=== PATIENT | male | born 1930 | race Caucasian/White ===

== ENCOUNTER 2019-12-16 12:02 | Emergency (ER) | payer OTHER ==
--- NOTE | 2019-12-16 12:15 | PDOC ---
History of Present Illness - General Chief Complaint: Injury Stated Complaint: FALL/LT ARM PAIN - History of Present Illness Initial Comments: 89 yo male with PMH of HTN, HLD, DM, CHF, BPH is [facility] due [facility] falls. Pt states that he fell and hit his head and left shoulder. He is unsure if he tripped or fainted. The falls were unwitnessed. Pt is poor historian but hx obtained by EMS, nursing, and nephew says that he was trying to get out of his wheel chair to curiel to the bathroom when he fell. Pt is on aspirin and is coming from [facility]. He is DNR/DNI and his healthcare proxy is his nephew, Robert Pascal, . Pt denies fevers, chills, cp, sob, nvd, dysuria, hematuria, bloody stool. 12/16/19 13:19 Past History - Medical History Allergies/Adverse Reactions: Allergies Allergy/AdvReac Type Severity Reaction Status Date / Time No Known Drug Allergies Allergy Verified 04/19/14 08:40 Home Medications: Ambulatory Orders Calcium 500 mg PO DAILY 05/21/13 Dutasteride [Avodart] 0.5 mg PO DAILY 05/21/13 Lisinopril/Hydrochlorothiazide [Lisinopril-Hctz 20-25 mg Tab] 1 each PO DAILY 05/21/13 Multivitamin [Multivitamins] 1 each PO DAILY 05/21/13 Nebivolol HCl [Bystolic] 10 mg PO DAILY 05/21/13 Ondansetron Oral Solution [Zofran Oral Solution 4 MG/5 ML -] 4 mg PO TID #10 mg 04/19/14 Saw [place] 80 mg PO DAILY 04/19/14 Valsartan/Hydrochlorothiazide [Diovan Hct 320-12.5 mg Tab] 1 combo PO DAILY 04/19/14 oxyCODONE HCL [Roxicodone -] 5 mg PO Q6H PRN 04/19/14 Unobtainable Home Med List 0 dose .ROUTE UTDICT 04/20/14 Disorders: Yes (PROSTATIC HYPERTROPHY) HTN: Yes Hypercholesterolemia: Yes - Psycho-Social/Smoking History Smoking History: Never smoked Review of Systems - Review of Systems Constitutional: No: Chills, Fever HEENTM: No: Recent change in vision, Nose Congestion Respiratory: No: Cough, Shortness of Breath Cardiac (ROS): Yes: Syncope. No: Chest Pain, Palpitations ABD/GI: No: Constipated, Diarrhea, Nausea, Vomiting : No: Burning, Dysuria, Discharge, Flank Pain Musculoskeletal: Yes: Other (left shoulder pain. unable to raise arm. ) Integumentary: No: Dryness, Flushing, Lesions Neurological: No: Headache, Ataxia, Dizziness Psychiatric: No: Anxiety, Depression, Mood Swings Endocrine: No: Intolerance to Cold, Intolerance to Heat *Physical Exam - Physical Exam General Appearance: Yes: Appropriately Dressed. No: Apparent Distress HEENT: positive: EOMI, LEE, Normal Voice, Other (5mm laceration on forehead above left eyebrow) Neck: negative: Tender, Rigidity Respiratory/Chest: positive: Lungs Clear, Normal Breath Sounds. negative: Respiratory Distress Cardiovascular: positive: Regular Rhythm, Regular Rate, S1, S2. negative: Edema, JVD Gastrointestinal/Abdominal: positive: Flat, Soft. negative: Tender Musculoskeletal: positive: Decreased Range of Motion (left arm). negative: CVA Tenderness Extremity: positive: Normal Capillary Refill, Normal Inspection, Tender (left arm). negative: Normal Range of Motion Integumentary: positive: Normal Color, Dry, Warm Neurologic: positive: cleat maker II-XII NML intact, Alert, Responsive, Finger to Nose, Confused, Disoriented, Other. negative: Fully Oriented (alert to self. ) ED Treatment Course - LABORATORY CBC & Chemistry Diagram: 12/16/19 13:13 12/16/19 13:13 Medical Decision Making - Medical Decision Making 89 yo male with PMH of HTN, HLD, DM, CHF, BPH is brought in by EMS [facility] due to multiple falls. CBC CMP UA UC Left shoulder x-ray shows communited CT head & cervical spine dont show any acute process Spoke with Dr. Tiffanie Coronel who takes care of Mr Grullon Spoke with Dr. Martinez who wanted a CT of the shoulder to rule out dislocations. Patient placed in sling and being sent back to nursing care to follow up outpatient with Dr. Martinez. Spoke with Robert Pascal (nephew, proxy), who agrees with the plan to discharge him since the patient is DNR/DNI/DNH. Discharge - Discharge Information Problems reviewed: Yes Clinical Impression/Diagnosis: Humerus fracture, Fall Condition: Stable Disposition: CUSTODIAL FACILITY - Admission No - Follow up/Referral Referrals: Guille Martinez DO [Staff Physician] - Tiffanie Coronel MD [Staff Physician] - Claribel St MD [Staff Physician] - - Patient Discharge Instructions Patient Printed Discharge Instructions: How to Use a Sling Additional Instructions: You were evaluated today for a left arm fracture. Take tylenol at home for your arm pain. Avoid activities that will stress your left arm and keep it in the sling provided. Follow up with Dr. Martinez within 5 days to evaluate you for the left arm fracture. Return to the ED if your condition worsens and/or you experience worsening pain, headaches, change in vision, fevers, chills, abdominal pain, back pain, pain during urination, numbness or tingling in the left arm/hand/fingers. - Post Discharge Activity
[2019-12-16 12:17] VITALS: TEMP 98.1; BMI 26.6
[2019-12-16] MEDS ORDERED: ACETAMINOPHEN 325 MG TABLET (FP) PO ONE (13:25)
[2019-12-16 13:26] LABS: HEMATOCRIT 36.6 % (35.4-49); HEMOGLOBIN 11.9 GM/dL (11.7-16.9); MCH 29.2 pg (25.7-33.7); MCHC 32.5 g/dl (32.0-35.9); MEAN CELL VOLUME 89.6 fl (80-96); MEAN PLT VOLUME 9.1 fl (7.5-11.1); PLATELET COUNT 216 K/MM3 (134-434); RBC 4.08 M/mm3 (4.00-5.60); RDW 15.8 % (11.9-15.9); WHITE BLOOD COUNT 11.1 K/mm3 (4.0-10.0)
[2019-12-16 14:04] LABS: ALBUMIN 3.6 g/dl (3.4-5.0); ALK PHOS 76 U/L (45-117); ANION GAP 8 MMOL/L (8-16); BILIRUBIN,TOTAL 0.6 mg/dL (0.2-1); BLOOD UREA NITROGEN 22.7 mg/dL (7-18); CALCIUM 8.7 mg/dL (8.5-10.1); CHLORIDE 104 mmol/L (98-107); CO2 30 mmol/L (21-32); CREATININE 1.1 mg/dL (0.55-1.3); POTASSIUM 4.1 mmol/L (3.5-5.1); SGOT/AST 21 U/L (15-37); SGPT/ALT 17 U/L (13-61); SODIUM 142 mmol/L (136-145); TOT PROT 6.7 g/dl (6.4-8.2)
[2019-12-16 14:37] LABS: GLUCOSE,RANDOM 145 mg/dL (74-106)
--- NOTE | 2019-12-16 15:28 | EKG ---
Test Reason : Blood Pressure : / mmHG Vent. Rate : 089 BPM Atrial Rate : 089 BPM P-R Int : 220 ms QRS Dur : 104 ms QT Int : 396 ms P-R-T Axes : 054 023 022 degrees QTc Int : 481 ms SINUS RHYTHM WITH 1ST DEGREE A-V BLOCK NONSPECIFIC ST ABNORMALITY PROLONGED QT ABNORMAL ECG WHEN COMPARED WITH ECG OF 19-APR-2014 08:54, VENT. RATE HAS INCREASED BY 34 BPM QT HAS LENGTHENED Confirmed by JARED MENDOZA MD ([id number]) on 12/16/2019 3:28:21 PM Referred By: Confirmed By:JARED MENDOZA MD
[2019-12-16] MEDS ORDERED: METOPROLOL TARTRATE 25 MG TABLET (FP) PO ONE (15:43)
[2019-12-16 16:34] VITALS: BP 149/74; PULSE 85
--- NOTE | 2019-12-16 16:49 | PDOC ---
Documentation entered by Shana Knott SCRIBE, acting as scribe for Sherita Mcgraw MD. Sherita Mcgraw MD: This documentation has been prepared by the antoinetteibe, Shana Knott SCRIBE, under my direction and personally reviewed by me in its entirety. I confirm that the documentation accurately reflects all work, treatment, procedures, and medical decision making performed by me. Attending Attestation - Resident Resident Name: Oscar Womack - ED Attending Attestation I have performed the following: I have examined & evaluated the patient, The case was reviewed & discussed with the resident, I agree w/resident's findings & plan, Exceptions are as noted - HPI HPI: 12/16/19 13:00 The patient is an 89-year-old male with a past medical history significant for HTN, HLD, and BPH who presents to the emergency department from [facility] s/p multiple falls with head and shoulder injury. History obtained via [place] and nephew (health care proxy), the patient was rushing to get out of the wheelchair to use the bathroom, when he fell. The patient is currently on blood thinners. Code status: DNR/DNI/DNH - Physicial Exam PE: 12/16/19 16:21 Agree with resident exam
[2019-12-16 17:06] LABS: URINE APPEARANCE CLEAR; URINE BILIRUBIN NEGATIVE (NEGATIVE); URINE COLOR YELLOW; URINE GLUCOSE (UA) NEGATIVE (NEGATIVE); URINE KETONE NEGATIVE (NEGATIVE); URINE LEUK ESTERASE NEGATIVE (NEGATIVE); URINE NITRITE NEGATIVE (NEGATIVE); URINE PROTEIN NEGATIVE (NEGATIVE)
--- NOTE | 2019-12-16 17:09 | CONSULT ---
Consult - text type - Consultation Consultation Note: DRAFT ORTHOPEDIC SURGERY CONSULTATION NOTE Department of Orthopedic Surgery HISTORY OF PRESENT ILLNESS Mr. Grullon is an 89 year old left hand dominant male with PMH of HTN, HLD, DM, CHF, BPH is brought in by EMS from shelter due to multiple falls. Pt states that he fell and hit his head and left shoulder. The orthopedic service was consulted for a left proximal humerus fracture. The patient is slightly confused and is unable to give an accurate history. He is unsure how he fell, and the fall was apparently unwitnessed. Nephew states patient was trying to curiel to the bathroom out of his wheelchair when he fell. Denies any other injuries. Denies numbness, tingling or other constitutional complaints. The patient lives in a shelter Denies tobacco use, drug use, alcohol abuse. He is DNR/DNI and his healthcare proxy is his nephew, Robert Pascal, . FAMILY HISTORY non-contributory REVIEW OF SYMPTOMS A twelve-point review of systems was performed and was negative except as noted in HPI. PHYSICAL EXAM Constitutional: Confused. Appears well-developed and well-nourished. No acute distress, appropriate mood and affect. Right Upper Extremity: Skin warm, dry, and intact; no lesions, rashes or ulcers noted. Muscle mass equal and symmetric to contralateral side. No atrophy noted. No masses or effusions noted. No tenderness to palpation all joints; nontender throughout rest of extremity. Full passive and active ROM, free from pain. Joints stable with no pathologic laxity. M/R/U/MSK/AX motor intact; SILT distally; 2+ radial pulses; Cap refill brisk. Tone and reflexes normal. Left Upper Extremity: Skin warm, dry, and intact; no lesions, rashes or ulcers noted. Muscle mass equal and symmetric to contralateral side. No atrophy noted. No masses or effusions noted. Tender to palpation at the proximal humerus. nontender throughout rest of extremity. Full passive and active ROM, free from pain of the elbow, wrist and fingers. LROM of the shoulder. Joints stable with no pathologic laxity. M/R/U/MSK/AX motor intact; SILT distally; 2+ radial pulses; Cap refill brisk. Tone and reflexes normal. Past Medical History Cardio/Vascular HTN,Hyperlipdemia Renal/ BPH Psych Other Past Surgical History Past Surgical History Hernia Repair Social History Smoking history Never smoked Hx Alcohol Use No Allergies Allergy/AdvReac Type Severity Reaction Status Date / Time No Known Drug Allergies Allergy Verified 04/19/14 08:40 Vital Signs (last) Temp Pulse Resp BP Pulse Ox 98.1 F 85 18 149/74 97 12/16/19 12:11 12/16/19 16:33 12/16/19 16:33 12/16/19 16:33 12/16/19 16:33 Intake and Output 12/14/19 12/15/19 12/16/19 23:59 23:59 23:59 Other: Weight 180 lb Height 5 ft 9 in Body Mass Index (BMI) 26.6 Weight Measurement Method Est/Stated by Patient Laboratory 12/16/19 13:13 12/16/19 13:13 IMAGING I personally reviewed all radiographs, CT, and other imaging. They demonstrate a left proximal humerus fracture. ASSESSMENT AND PLAN Mr. Grullon is a 89 year old male presenting status post fall with a left sided proximal humerus fracture. We have reviewed the imaging and clinical findings in detail, as well as their potential implications. After appropriate informed discussion, the patient was placed in a LUE sling. Patient was instructed regarding: non weight bearing on fractured side, sling to LUE. signs and symptoms of compartment syndrome and need to seek immediate care should new onset numbness, tingling, or significantly increasing pain occur. keeping the sling clean and dry. avoiding NSAID medications. All questions were answered. Thank you for involving our team in the care of this patient.
== END 2019-12-16 20:41 ==
LOC: JER 12:02
DX: M79.602 Pain in left arm (principal)
CPT/HCPCS: 36415; 70450-TC; 72125-TC; 73030-TC-LT-FY; 73200-TC-RT; 80053; 81003; 82550; 82553; 84484; 85027; 87086; 93005; 93010; 99285-25

== ENCOUNTER 2020-07-01 22:04 | Inpatient (IN) | payer OTHER ==
[2020-07-02 00:56] LABS: BASO % 0.7 % (0-2.0); EOS % 4.3 % (0-4.5); HEMATOCRIT 24.9 % (35.4-49); HEMOGLOBIN 7.9 GM/dL (11.7-16.9); LYMPH % 19.2 % (8-40); MCH 27.8 pg (25.7-33.7); MCHC 31.8 g/dl (32.0-35.9); MEAN CELL VOLUME 87.4 fl (80-96); MEAN PLT VOLUME 8.1 fl (7.5-11.1); MONO % 8.6 % (3.8-10.2); NEUT % 67.2 % (42.8-82.8); PLATELET COUNT 233 K/MM3 (134-434); RBC 2.85 M/mm3 (4.00-5.60); RDW 18.2 % (11.9-15.9); WHITE BLOOD COUNT 9.8 K/mm3 (4.0-10.0)
[2020-07-02 01:06] LABS: INR 1.08 (0.83-1.09); PROTHROMBIN TIME (PATIENT) 13.3 SEC (9.7-13.0)
[2020-07-02 01:09] LABS: ACTIVATED PTT 29.4 SECONDS (25.2-36.5)
[2020-07-02] MEDS ORDERED: morphine CARPU-JECT 4 MG/1 ML DISP.SYRIN IVPUSH ONE (01:20)
[2020-07-02] MEDS ORDERED: MORPHINE SULFATE 2 MG/ML VIAL ONE (01:21)
[2020-07-02 01:30] LABS: ALBUMIN 2.8 g/dl (3.4-5.0); CALCIUM 8.1 mg/dL (8.5-10.1)
[2020-07-02 01:31] LABS: BLOOD UREA NITROGEN 21.6 mg/dL (7-18)
[2020-07-02 01:35] LABS: BILIRUBIN,TOTAL 0.4 mg/dL (0.2-1); TOT PROT 5.8 g/dl (6.4-8.2)
[2020-07-02 05:07] LABS: EPI CELLS 5 /uL (0-25.1); HYALINE CASTS 16 /uL (0-3.1); PH,URINE 5.5 (5.0-8.0); URINE APPEARANCE TURBID; URINE BACTERIA 41 /uL (0-1359); URINE BILIRUBIN NEGATIVE (NEGATIVE); URINE COLOR ORANGE; URINE GLUCOSE (UA) NEGATIVE (NEGATIVE); URINE KETONE NEGATIVE (NEGATIVE); URINE LEUK ESTERASE 2+ (NEGATIVE); URINE NITRITE NEGATIVE (NEGATIVE); URINE PROTEIN 3+ (NEGATIVE); URINE UROBILINOGEN 0.2 mg/dL (0.2-1.0); URINE WBC 2850 /uL (0-25.8)
[2020-07-02 06:42] LABS: BASO % 0.9 % (0-2.0); EOS % 6.2 % (0-4.5); HEMATOCRIT 24.6 % (35.4-49); HEMOGLOBIN 7.9 GM/dL (11.7-16.9); MCH 28.1 pg (25.7-33.7); MCHC 32.2 g/dl (32.0-35.9); MEAN CELL VOLUME 87.4 fl (80-96); MONO % 8.7 % (3.8-10.2); NEUT % 63.2 % (42.8-82.8); PLATELET COUNT 224 K/MM3 (134-434); RBC 2.82 M/mm3 (4.00-5.60); RDW 18.4 % (11.9-15.9); WHITE BLOOD COUNT 9.2 K/mm3 (4.0-10.0)
[2020-07-02 07:31] LABS: ALBUMIN 2.5 g/dl (3.4-5.0); BLOOD UREA NITROGEN 18.7 mg/dL (7-18); POTASSIUM 4.1 mmol/L (3.5-5.1)
[2020-07-02 07:33] LABS: CREATININE 0.8 mg/dL (0.55-1.3)
[2020-07-02 07:35] LABS: BILIRUBIN,TOTAL 0.4 mg/dL (0.2-1); TOT PROT 5.5 g/dl (6.4-8.2)
[2020-07-02 08:44] LABS: URINE RBC 17586.9 /uL (0-23.9)
[2020-07-02 08:46] LABS: YEAST NON SEEN (NEGATIVE)
[2020-07-02] MEDS ORDERED: SODIUM CHLORIDE 1,000 ML IV SCH (12:45)
[2020-07-02] MEDS ORDERED: TAMSULOSIN HCL 0.4 MG CAP PO ONE (16:10)
[2020-07-02] MEDS: oxyCODONE HCL 5 MG TABLET PO PRN (16:17)
[2020-07-02] MEDS ORDERED: cefTRIAXone SODIUM 1 GM VIAL ONE (21:21)
[2020-07-02] MEDS ORDERED: DEXTROSE 5%-WATER - 50 ML IVPB ONE (21:22)
[2020-07-02] MEDS: CEFTRIAXONE 1 GM in DEXTROSE 5%-WATER - 50 ML IVPB SCH (21:23)
[2020-07-03] MEDS ORDERED: HYDROCHLOROTHIAZIDE 25 MG TABLET (FP) PO SCH (10:00)
[2020-07-03] MEDS ORDERED: LISINOPRIL 20 MG TABLET PO SCH (10:00)
[2020-07-03] MEDS ORDERED: NEBIVOLOL 10 MG TABLET (FP) PO SCH (10:00)
[2020-07-03] MEDS ORDERED: cefTRIAXone SODIUM 1 GM VIAL ONE (11:27)
[2020-07-03] MEDS ORDERED: DEXTROSE 5%-WATER - 50 ML IVPB ONE (11:27)
[2020-07-03] MEDS: DUTASTERIDE 0.5 MG CAP (FP) PO SCH (11:31)
[2020-07-03] MEDS: CEFTRIAXONE 1 GM in DEXTROSE 5%-WATER - 50 ML IVPB SCH (11:31)
[2020-07-03] MEDS: oxyCODONE HCL 5 MG TABLET PO PRN (19:53)
[2020-07-04] MEDS: oxyCODONE HCL 5 MG TABLET PO PRN (03:41)
[2020-07-04 07:56] LABS: BASO % 1.1 % (0-2.0); EOS % 6.4 % (0-4.5); HEMATOCRIT 25.4 % (35.4-49); MCH 27.5 pg (25.7-33.7); MCHC 31.4 g/dl (32.0-35.9); MEAN CELL VOLUME 87.6 fl (80-96); MEAN PLT VOLUME 8.4 fl (7.5-11.1); MONO % 9.7 % (3.8-10.2); NEUT % 59.8 % (42.8-82.8); PLATELET COUNT 246 K/MM3 (134-434); RBC 2.89 M/mm3 (4.00-5.60); RDW 19.2 % (11.9-15.9)
[2020-07-04 08:19] LABS: ALBUMIN 2.4 g/dl (3.4-5.0)
[2020-07-04 08:27] LABS: CREATININE 0.7 mg/dL (0.55-1.3)
[2020-07-04 08:28] LABS: BILIRUBIN,TOTAL 0.4 mg/dL (0.2-1); TOT PROT 5.5 g/dl (6.4-8.2)
[2020-07-04] MEDS ORDERED: cefTRIAXone SODIUM 1 GM VIAL ONE (10:52)
[2020-07-04] MEDS ORDERED: DEXTROSE 5%-WATER - 50 ML IVPB ONE (10:52)
[2020-07-04] MEDS: DUTASTERIDE 0.5 MG CAP (FP) PO SCH (10:56)
[2020-07-04] MEDS: CEFTRIAXONE 1 GM in DEXTROSE 5%-WATER - 50 ML IVPB SCH (10:56)
[2020-07-04] MEDS ORDERED: PROPOFOL 20 ML ONE (13:10)
[2020-07-04] MEDS ORDERED: LIDOCAINE HCL/PF 2% SDV 5ML VIAL ONE (13:10)
[2020-07-04] MEDS ORDERED: oxyCODONE HCL 5 MG TABLET PO PRN (15:04)
[2020-07-04] MEDS ORDERED: ONDANSETRON 4 MG/2 ML VIAL IVPUSH PRN (17:13)
[2020-07-05] MEDS ORDERED: cefTRIAXone SODIUM 1 GM VIAL ONE (08:38)
[2020-07-05] MEDS ORDERED: DEXTROSE 5%-WATER - 50 ML IVPB ONE (08:39)
[2020-07-05] MEDS: CEFTRIAXONE 1 GM in DEXTROSE 5%-WATER - 50 ML IVPB SCH (09:03)
[2020-07-05] MEDS: DUTASTERIDE 0.5 MG CAP (FP) PO SCH (09:04)
[2020-07-06] MEDS ORDERED: cefTRIAXone SODIUM 1 GM VIAL ONE (09:35)
[2020-07-06] MEDS ORDERED: DEXTROSE 5%-WATER - 50 ML IVPB ONE (09:35)
[2020-07-06] MEDS: DUTASTERIDE 0.5 MG CAP (FP) PO SCH (09:39)
[2020-07-06] MEDS: CEFTRIAXONE 1 GM in DEXTROSE 5%-WATER - 50 ML IVPB SCH (09:39)
[2020-07-06] MEDS ORDERED: SODIUM CHLORIDE 0.45% 1,000 ML IV SCH (13:45)
[2020-07-06] MEDS: LORazepam 2 MG/ML SDV VIAL IVPUSH PRN (21:27)
[2020-07-07 08:35] LABS: HEMATOCRIT 26.6 % (35.4-49); HEMOGLOBIN 8.4 GM/dL (11.7-16.9); MCHC 31.7 g/dl (32.0-35.9); MEAN CELL VOLUME 88.4 fl (80-96); MEAN PLT VOLUME 8.3 fl (7.5-11.1); PLATELET COUNT 239 K/MM3 (134-434); RDW 18.6 % (11.9-15.9)
[2020-07-07 09:06] LABS: CALCIUM 8.4 mg/dL (8.5-10.1)
[2020-07-07 09:07] LABS: ALBUMIN 2.4 g/dl (3.4-5.0); BLOOD UREA NITROGEN 17.4 mg/dL (7-18)
[2020-07-07 09:10] LABS: CREATININE 0.7 mg/dL (0.55-1.3)
[2020-07-07 09:11] LABS: BILIRUBIN,TOTAL 0.3 mg/dL (0.2-1); TOT PROT 5.5 g/dl (6.4-8.2)
[2020-07-07] MEDS ORDERED: cefTRIAXone SODIUM 1 GM VIAL ONE (09:17)
[2020-07-07] MEDS ORDERED: DEXTROSE 5%-WATER - 50 ML IVPB ONE (09:18)
[2020-07-07] MEDS: DUTASTERIDE 0.5 MG CAP (FP) PO SCH (09:46)
[2020-07-07] MEDS: CEFTRIAXONE 1 GM in DEXTROSE 5%-WATER - 50 ML IVPB SCH (09:46)
[2020-07-07] MEDS: amLODIPine BESYLATE 10 MG TABLET (FP) PO SCH (12:30)
[2020-07-07] MEDS: LORazepam 2 MG/ML SDV VIAL IVPUSH PRN (20:29)
[2020-07-08] MEDS ORDERED: cefTRIAXone SODIUM 1 GM VIAL ONE (10:08)
[2020-07-08] MEDS ORDERED: DEXTROSE 5%-WATER - 50 ML IVPB ONE (10:09)
[2020-07-08] MEDS: DUTASTERIDE 0.5 MG CAP (FP) PO SCH (10:10)
[2020-07-08] MEDS: CEFTRIAXONE 1 GM in DEXTROSE 5%-WATER - 50 ML IVPB SCH (10:11)
[2020-07-08] MEDS: amLODIPine BESYLATE 10 MG TABLET (FP) PO SCH (10:11)
[2020-07-08] MEDS: LORazepam 2 MG/ML SDV VIAL IVPUSH PRN ×2 (11:08→20:39)
[2020-07-08] MEDS: METOPROLOL TARTRATE 25 MG TABLET (FP) PO SCH ×2 (13:43→21:06)
[2020-07-09] MEDS: ALBUTEROL SO4 0.042% IH SOL 1.25 MG/3 ML VIAL.NEB NEB PRN ×3 (01:55→20:34)
[2020-07-09] MEDS ORDERED: ALBUTEROL SO4 0.083% IH SOL 2.5 MG/3 ML VIAL.NEB. NEB ONE ×2 (01:56→20:22)
[2020-07-09 08:26] LABS: BASO % 0.8 % (0-2.0); EOS % 9.4 % (0-4.5); HEMATOCRIT 27.2 % (35.4-49); HEMOGLOBIN 8.4 GM/dL (11.7-16.9); LYMPH % 24.7 % (8-40); MCH 27.6 pg (25.7-33.7); MCHC 30.9 g/dl (32.0-35.9); MEAN CELL VOLUME 89.4 fl (80-96); MEAN PLT VOLUME 8.2 fl (7.5-11.1); MONO % 9.2 % (3.8-10.2); NEUT % 55.9 % (42.8-82.8); PLATELET COUNT 218 K/MM3 (134-434); RBC 3.04 M/mm3 (4.00-5.60); RDW 18.8 % (11.9-15.9); WHITE BLOOD COUNT 9.3 K/mm3 (4.0-10.0)
[2020-07-09 08:42] LABS: POTASSIUM 3.9 mmol/L (3.5-5.1)
[2020-07-09 08:44] LABS: CALCIUM 8.4 mg/dL (8.5-10.1)
[2020-07-09 08:45] LABS: ALBUMIN 2.5 g/dl (3.4-5.0); BLOOD UREA NITROGEN 18.9 mg/dL (7-18)
[2020-07-09 08:48] LABS: CREATININE 0.7 mg/dL (0.55-1.3)
[2020-07-09 08:49] LABS: BILIRUBIN,TOTAL 0.3 mg/dL (0.2-1); TOT PROT 5.7 g/dl (6.4-8.2)
[2020-07-09] MEDS ORDERED: DEXTROSE 5%-WATER - 50 ML IVPB ONE (10:12)
[2020-07-09] MEDS ORDERED: cefTRIAXone SODIUM 1 GM VIAL ONE (10:12)
[2020-07-09] MEDS: METOPROLOL TARTRATE 25 MG TABLET (FP) PO SCH ×2 (10:21→21:02)
[2020-07-09] MEDS: amLODIPine BESYLATE 10 MG TABLET (FP) PO SCH (10:21)
[2020-07-09] MEDS: CEFTRIAXONE 1 GM in DEXTROSE 5%-WATER - 50 ML IVPB SCH (10:21)
[2020-07-09] MEDS: DUTASTERIDE 0.5 MG CAP (FP) PO SCH (10:21)
[2020-07-09] MEDS: ALPRAZolam 0.25 MG TABLET PO PRN (16:04)
[2020-07-09 17:48] VITALS: BMI 26.6
[2020-07-09] MEDS: LORazepam 2 MG/ML SDV VIAL IVPUSH PRN (20:31)
[2020-07-10] MEDS ORDERED: DEXTROSE 5%-WATER - 50 ML IVPB ONE ×2 (09:38→10:39)
[2020-07-10] MEDS ORDERED: cefTRIAXone SODIUM 1 GM VIAL ONE ×2 (09:38→10:39)
[2020-07-10] MEDS ORDERED: PT OWN MED DRAWER 7, Y5N ONE (09:38)
[2020-07-10] MEDS: METOPROLOL TARTRATE 25 MG TABLET (FP) PO SCH ×2 (09:42→21:03)
[2020-07-10] MEDS: amLODIPine BESYLATE 10 MG TABLET (FP) PO SCH (09:42)
[2020-07-10] MEDS: DUTASTERIDE 0.5 MG CAP (FP) PO SCH (09:42)
[2020-07-10] MEDS: CEFTRIAXONE 1 GM in DEXTROSE 5%-WATER - 50 ML IVPB SCH (10:41)
[2020-07-10] MEDS: ALPRAZolam 0.25 MG TABLET PO PRN (21:03)
[2020-07-11 07:54] LABS: BASO % 0.8 % (0-2.0); EOS % 11.8 % (0-4.5); HEMATOCRIT 26.1 % (35.4-49); HEMOGLOBIN 8.1 GM/dL (11.7-16.9); LYMPH % 25.8 % (8-40); MCH 27.4 pg (25.7-33.7); MEAN CELL VOLUME 88.3 fl (80-96); MEAN PLT VOLUME 8.3 fl (7.5-11.1); MONO % 8.8 % (3.8-10.2); NEUT % 52.8 % (42.8-82.8); PLATELET COUNT 208 K/MM3 (134-434); RBC 2.95 M/mm3 (4.00-5.60); RDW 18.5 % (11.9-15.9); WHITE BLOOD COUNT 7.9 K/mm3 (4.0-10.0)
[2020-07-11 09:15] LABS: ALBUMIN 2.4 g/dl (3.4-5.0)
[2020-07-11 09:17] LABS: CALCIUM 8.6 mg/dL (8.5-10.1)
[2020-07-11 09:19] LABS: CREATININE 0.6 mg/dL (0.55-1.3)
[2020-07-11 09:20] LABS: BILIRUBIN,TOTAL 0.4 mg/dL (0.2-1); TOT PROT 5.7 g/dl (6.4-8.2)
[2020-07-11] MEDS ORDERED: cefTRIAXone SODIUM 1 GM VIAL ONE (11:56)
[2020-07-11] MEDS ORDERED: DEXTROSE 5%-WATER - 50 ML IVPB ONE (11:57)
[2020-07-11] MEDS: CEFTRIAXONE 1 GM in DEXTROSE 5%-WATER - 50 ML IVPB SCH (12:06)
[2020-07-11] MEDS: amLODIPine BESYLATE 10 MG TABLET (FP) PO SCH (12:07)
[2020-07-11] MEDS: DUTASTERIDE 0.5 MG CAP (FP) PO SCH (12:07)
[2020-07-11] MEDS: METOPROLOL TARTRATE 25 MG TABLET (FP) PO SCH ×2 (12:07→21:34)
[2020-07-12] MEDS: METOPROLOL TARTRATE 25 MG TABLET (FP) PO SCH (12:15)
[2020-07-12] MEDS: amLODIPine BESYLATE 10 MG TABLET (FP) PO SCH (12:15)
[2020-07-12] MEDS: DUTASTERIDE 0.5 MG CAP (FP) PO SCH (12:15)
[2020-07-12 20:36] VITALS: BP 132/77; PULSE 63; TEMP 98.1
== END 2020-07-12 20:53 | DRG 715 ==
LOC: JER 22:04 → JERBED 07-02 03:10 → J8W 07-02 11:36
PROVIDERS: ADMIT Internal Medicine; ATTEND Internal Medicine
PROC: 0TBB8ZX Excision of Bladder, Via Natural or Artificial Opening Endoscopic, Diagnostic (ICD-10-PCS; principal; 2020-07-04 14:00)
PROC: 0T5B8ZZ Destruction of Bladder, Via Natural or Artificial Opening Endoscopic (ICD-10-PCS; 2020-07-04 14:00)
DX: C61 Malignant neoplasm of prostate (principal); I13.0 Hypertensive heart and chronic kidney disease with heart failure and stage 1 through stage 4 chronic kidney disease, or unspecified chronic kidney disease; T83.091A Other mechanical complication of indwelling urethral catheter, initial encounter; R31.0 Gross hematuria; E11.9 Type 2 diabetes mellitus without complications; D64.9 Anemia, unspecified; N40.0 Benign prostatic hyperplasia without lower urinary tract symptoms; E78.5 Hyperlipidemia, unspecified; Y83.9 Surgical procedure, unspecified as the cause of abnormal reaction of the patient, or of later complication, without mention of misadventure at the time of the procedure; E66.9 Obesity, unspecified; Z68.26 Body mass index [BMI] 26.0-26.9, adult; F41.9 Anxiety disorder, unspecified; I50.9 Heart failure, unspecified; N18.9 Chronic kidney disease, unspecified
CPT/HCPCS: 36415; 71045-TC-FY; 74177-TC; 76775-TC; 76856-TC; 80053; 81003; 82962; 85025; 85027; 85610; 85730; 86850; 86900; 86901; 87086; 88307-TC; 93005; 93010; 94640; 94760; 99285-25; C9803; Q9967; U0003

== ENCOUNTER 2020-12-27 18:33 | Inpatient (IN) | payer OTHER ==
[2020-12-27] MEDS ORDERED: LIDOCAINE HCL 2% JELLY 10 ML CARTRIDGE ONE (18:42)
[2020-12-27 19:35] LABS: EPI CELLS >36 /uL (0-25.1); HYALINE CASTS 284 /uL (0-3.1); PH,URINE 6.5 (5.0-8.0); URINE APPEARANCE TURBID; URINE BACTERIA >9,000 /uL (0-1359); URINE BILIRUBIN NEGATIVE (NEGATIVE); URINE COLOR YELLOW; URINE GLUCOSE (UA) NEGATIVE (NEGATIVE); URINE KETONE NEGATIVE (NEGATIVE); URINE LEUK ESTERASE 3+ (NEGATIVE); URINE NITRITE POSITIVE (NEGATIVE); URINE PROTEIN 2+ (NEGATIVE); URINE UROBILINOGEN 0.2 mg/dL (0.2-1.0); URINE WBC 20424 /uL (0-25.8)
[2020-12-27 20:06] LABS: HEMOGLOBIN 11.4 GM/dL (11.7-16.9); MCH 25.2 pg (25.7-33.7); MCHC 31.5 g/dl (32.0-35.9); MEAN CELL VOLUME 80.1 fl (80-96); MEAN PLT VOLUME 7.7 fl (7.5-11.1); PLATELET COUNT 271 10^3/uL (134-434); RDW 18.5 % (11.9-15.9)
[2020-12-27] MEDS ORDERED: cefTRIAXone SODIUM 1 GM VIAL ONE (20:27)
[2020-12-27 20:28] LABS: ALBUMIN 2.6 g/dl (3.4-5.0); BLOOD UREA NITROGEN 21.4 mg/dL (7-18); CALCIUM 8.5 mg/dL (8.5-10.1)
[2020-12-27] MEDS ORDERED: CEFTRIAXONE 1 GM/50 ML BAG ONE (20:28)
[2020-12-27 20:32] LABS: CREATININE 0.6 mg/dL (0.55-1.3)
[2020-12-27 20:33] LABS: BILIRUBIN,TOTAL 0.2 mg/dL (0.2-1)
[2020-12-27] MEDS ORDERED: SODIUM CHLORIDE 500 ML IV STA (20:36)
[2020-12-27 20:49] LABS: URINE RBC 438.5 /uL (0-23.9)
[2020-12-27 20:50] LABS: YEAST NONE SEEN (NEGATIVE)
[2020-12-27 21:15] LABS: ANISOCYTOSIS 2+; MACROCYTOSIS 0; PLATELET ESTIMATE NORMAL
[2020-12-28] MEDS: ONDANSETRON 4 MG/2 ML VIAL IVPUSH SCH ×3 (05:15→19:59)
[2020-12-28] MEDS: ACETAMINOPHEN 500 MG TABLET (FP) PO SCH ×3 (05:16→21:06)
[2020-12-28] MEDS: FUROSEMIDE 20 MG TABLET (FP) PO SCH ×2 (05:17→15:06)
[2020-12-28] MEDS: LEVOTHYROXINE NA 25 MCG TABLET (FP) PO SCH (06:21)
[2020-12-28] MEDS: INSULIN SLIDING SCALE (NOVOLOG) 1 VIAL SQ SCH ×4 (06:21→21:10)
[2020-12-28 09:04] LABS: HEMATOCRIT 32.8 % (35.4-49); HEMOGLOBIN 10.5 GM/dL (11.7-16.9); MCH 25.7 pg (25.7-33.7); MCHC 31.9 g/dl (32.0-35.9); MEAN CELL VOLUME 80.6 fl (80-96); MEAN PLT VOLUME 8.2 fl (7.5-11.1); PLATELET COUNT 250 10^3/uL (134-434); RBC 4.07 M/mm3 (4.00-5.60); RDW 18.3 % (11.9-15.9); WHITE BLOOD COUNT 10.7 K/mm3 (4.0-10.0)
[2020-12-28 09:08] LABS: INR 1.05 (0.83-1.09); PROTHROMBIN TIME (PATIENT) 12.7 SEC (9.7-13.0)
[2020-12-28 09:31] LABS: BLOOD UREA NITROGEN 13.7 mg/dL (7-18); CALCIUM 8.3 mg/dL (8.5-10.1)
[2020-12-28 09:35] LABS: CREATININE 0.6 mg/dL (0.55-1.3)
[2020-12-28] MEDS ORDERED: PATIENT'S OWN MEDICATION (NON-FORMULARY) (Arginine/Ascorbate Sod/Vite Ac [Arginaid Powder] PO SCH (10:00)
[2020-12-28] MEDS: METOPROLOL TARTRATE 25 MG TABLET (FP) PO SCH ×2 (10:16→21:07)
[2020-12-28] MEDS: LISINOPRIL 5 MG TABLET PO SCH (10:16)
[2020-12-28] MEDS: POTASSIUM CHLORIDE TABS 20 MEQ TABLET.ER (FP) PO SCH (10:16)
[2020-12-28] MEDS: DUTASTERIDE 0.5 MG CAP (FP) PO SCH (10:16)
[2020-12-28] MEDS: ENOXAPARIN NA (PORCINE) 40 MG/0.4 ML DISP.SYRIN SQ SCH (10:16)
[2020-12-28] MEDS: BISACODYL 5 MG TABLET.DR (FP) PO SCH (10:16)
[2020-12-28] MEDS: CHOLECALCIFEROL (VIT D3) 1,000 UNIT (25 MCG) TABLET PO SCH (10:16)
[2020-12-28] MEDS: MULTIVITAMINS (DAILY MVI) TABLET (FP) PO SCH (10:16)
[2020-12-28] MEDS: CALCIUM 500MG/VIT-D 200 UNITS COMBO TABLET (FP) PO SCH (10:16)
[2020-12-28 10:43] LABS: ANISOCYTOSIS 1+; MACROCYTOSIS 0; PLATELET ESTIMATE NORMAL
[2020-12-28] MEDS ORDERED: cefTRIAXone SODIUM 1 GM VIAL ONE (20:44)
[2020-12-28] MEDS ORDERED: DEXTROSE 5%-WATER - 50 ML IVPB ONE (20:44)
[2020-12-28] MEDS: ATORVASTATIN CA 10 MG TABLET (FP) PO SCH (21:06)
[2020-12-28] MEDS ORDERED: CEFTRIAXONE 1 GM in DEXTROSE 5%-WATER - 50 ML IVPB SCH (22:00)
[2020-12-29] MEDS: ONDANSETRON 4 MG/2 ML VIAL IVPUSH SCH ×3 (04:15→20:07)
[2020-12-29] MEDS: ACETAMINOPHEN 500 MG TABLET (FP) PO SCH ×3 (05:48→21:04)
[2020-12-29] MEDS: FUROSEMIDE 20 MG TABLET (FP) PO SCH ×2 (05:48→13:07)
[2020-12-29] MEDS: INSULIN SLIDING SCALE (NOVOLOG) 1 VIAL SQ SCH ×4 (06:01→21:04)
[2020-12-29] MEDS: LEVOTHYROXINE NA 25 MCG TABLET (FP) PO SCH (06:01)
[2020-12-29] MEDS ORDERED: cefTRIAXone SODIUM 1 GM VIAL ONE (09:21)
[2020-12-29] MEDS ORDERED: DEXTROSE 5%-WATER - 50 ML IVPB ONE (09:21)
[2020-12-29] MEDS: ENOXAPARIN NA (PORCINE) 40 MG/0.4 ML DISP.SYRIN SQ SCH (09:32)
[2020-12-29] MEDS: MULTIVITAMINS (DAILY MVI) TABLET (FP) PO SCH (09:33)
[2020-12-29] MEDS: CHOLECALCIFEROL (VIT D3) 1,000 UNIT (25 MCG) TABLET PO SCH (09:33)
[2020-12-29] MEDS: METOPROLOL TARTRATE 25 MG TABLET (FP) PO SCH ×2 (09:33→21:04)
[2020-12-29] MEDS: CALCIUM 500MG/VIT-D 200 UNITS COMBO TABLET (FP) PO SCH (09:33)
[2020-12-29] MEDS: LISINOPRIL 5 MG TABLET PO SCH (09:33)
[2020-12-29] MEDS: POTASSIUM CHLORIDE TABS 20 MEQ TABLET.ER (FP) PO SCH (09:33)
[2020-12-29] MEDS: DUTASTERIDE 0.5 MG CAP (FP) PO SCH (09:33)
[2020-12-29] MEDS: BISACODYL 5 MG TABLET.DR (FP) PO SCH (09:33)
[2020-12-29] MEDS: CEFTRIAXONE 1 GM in DEXTROSE 5%-WATER - 50 ML IVPB SCH (10:51)
[2020-12-29 15:49] VITALS: BMI 26.9
[2020-12-29] MEDS ORDERED: INSULIN (NOVOLOG) ASPART 100 UNITS/ML 10ML VIAL ONE (20:56)
[2020-12-29] MEDS: ATORVASTATIN CA 10 MG TABLET (FP) PO SCH (21:04)
[2020-12-30] MEDS: ONDANSETRON 4 MG/2 ML VIAL IVPUSH SCH ×2 (04:04→12:27)
[2020-12-30] MEDS: FUROSEMIDE 20 MG TABLET (FP) PO SCH ×2 (06:21→14:51)
[2020-12-30] MEDS: ACETAMINOPHEN 500 MG TABLET (FP) PO SCH ×3 (06:21→21:04)
[2020-12-30] MEDS: LEVOTHYROXINE NA 25 MCG TABLET (FP) PO SCH (06:21)
[2020-12-30] MEDS: INSULIN SLIDING SCALE (NOVOLOG) 1 VIAL SQ SCH ×4 (06:23→21:05)
[2020-12-30] MEDS ORDERED: cefTRIAXone SODIUM 1 GM VIAL ONE (09:57)
[2020-12-30] MEDS ORDERED: DEXTROSE 5%-WATER - 50 ML IVPB ONE (09:57)
[2020-12-30] MEDS: CALCIUM 500MG/VIT-D 200 UNITS COMBO TABLET (FP) PO SCH (10:33)
[2020-12-30] MEDS: ENOXAPARIN NA (PORCINE) 40 MG/0.4 ML DISP.SYRIN SQ SCH (10:33)
[2020-12-30] MEDS: CEFTRIAXONE 1 GM in DEXTROSE 5%-WATER - 50 ML IVPB SCH (10:33)
[2020-12-30] MEDS: DUTASTERIDE 0.5 MG CAP (FP) PO SCH (10:33)
[2020-12-30] MEDS: CHOLECALCIFEROL (VIT D3) 1,000 UNIT (25 MCG) TABLET PO SCH (10:33)
[2020-12-30] MEDS: BISACODYL 5 MG TABLET.DR (FP) PO SCH (10:33)
[2020-12-30] MEDS: POTASSIUM CHLORIDE TABS 20 MEQ TABLET.ER (FP) PO SCH (10:33)
[2020-12-30] MEDS: METOPROLOL TARTRATE 25 MG TABLET (FP) PO SCH ×2 (10:33→21:04)
[2020-12-30] MEDS: MULTIVITAMINS (DAILY MVI) TABLET (FP) PO SCH (10:33)
[2020-12-30] MEDS: LISINOPRIL 5 MG TABLET PO SCH (10:33)
[2020-12-30] MEDS ORDERED: INSULIN (NOVOLOG) ASPART 100 UNITS/ML 10ML VIAL ONE ×2 (10:54→20:59)
[2020-12-30] MEDS ORDERED: ONDANSETRON 4 MG/2 ML VIAL IVPUSH PRN (12:38)
[2020-12-30] MEDS: ATORVASTATIN CA 10 MG TABLET (FP) PO SCH (21:04)
[2020-12-31] MEDS: FUROSEMIDE 20 MG TABLET (FP) PO SCH ×2 (06:25→14:30)
[2020-12-31] MEDS: ACETAMINOPHEN 500 MG TABLET (FP) PO SCH ×3 (06:25→21:34)
[2020-12-31] MEDS: LEVOTHYROXINE NA 25 MCG TABLET (FP) PO SCH (06:25)
[2020-12-31] MEDS: INSULIN SLIDING SCALE (NOVOLOG) 1 VIAL SQ SCH ×4 (06:26→21:36)
[2020-12-31] MEDS ORDERED: cefTRIAXone SODIUM 1 GM VIAL ONE (09:12)
[2020-12-31] MEDS ORDERED: DEXTROSE 5%-WATER - 50 ML IVPB ONE (09:12)
[2020-12-31] MEDS: CALCIUM 500MG/VIT-D 200 UNITS COMBO TABLET (FP) PO SCH (09:17)
[2020-12-31] MEDS: CHOLECALCIFEROL (VIT D3) 1,000 UNIT (25 MCG) TABLET PO SCH (09:17)
[2020-12-31] MEDS: DUTASTERIDE 0.5 MG CAP (FP) PO SCH (09:17)
[2020-12-31] MEDS: ENOXAPARIN NA (PORCINE) 40 MG/0.4 ML DISP.SYRIN SQ SCH (09:17)
[2020-12-31] MEDS: BISACODYL 5 MG TABLET.DR (FP) PO SCH (09:17)
[2020-12-31] MEDS: METOPROLOL TARTRATE 25 MG TABLET (FP) PO SCH ×2 (09:17→21:33)
[2020-12-31] MEDS: LISINOPRIL 5 MG TABLET PO SCH (09:17)
[2020-12-31] MEDS: MULTIVITAMINS (DAILY MVI) TABLET (FP) PO SCH (09:17)
[2020-12-31] MEDS: CEFTRIAXONE 1 GM in DEXTROSE 5%-WATER - 50 ML IVPB SCH (09:18)
[2020-12-31] MEDS: POTASSIUM CHLORIDE TABS 20 MEQ TABLET.ER (FP) PO SCH (09:18)
[2020-12-31] MEDS: ATORVASTATIN CA 10 MG TABLET (FP) PO SCH (21:34)
[2021-01-01] MEDS: FUROSEMIDE 20 MG TABLET (FP) PO SCH ×2 (05:47→14:49)
[2021-01-01] MEDS: ACETAMINOPHEN 500 MG TABLET (FP) PO SCH ×3 (05:48→21:26)
[2021-01-01] MEDS: INSULIN SLIDING SCALE (NOVOLOG) 1 VIAL SQ SCH ×4 (07:02→21:40)
[2021-01-01] MEDS: LEVOTHYROXINE NA 25 MCG TABLET (FP) PO SCH (07:03)
[2021-01-01] MEDS ORDERED: DEXTROSE 5%-WATER - 50 ML IVPB ONE (10:11)
[2021-01-01] MEDS ORDERED: cefTRIAXone SODIUM 1 GM VIAL ONE (10:11)
[2021-01-01] MEDS: ENOXAPARIN NA (PORCINE) 40 MG/0.4 ML DISP.SYRIN SQ SCH (10:15)
[2021-01-01] MEDS: DUTASTERIDE 0.5 MG CAP (FP) PO SCH (10:15)
[2021-01-01] MEDS: LISINOPRIL 5 MG TABLET PO SCH (10:15)
[2021-01-01] MEDS: METOPROLOL TARTRATE 25 MG TABLET (FP) PO SCH ×2 (10:15→21:27)
[2021-01-01] MEDS: MULTIVITAMINS (DAILY MVI) TABLET (FP) PO SCH (10:15)
[2021-01-01] MEDS: CHOLECALCIFEROL (VIT D3) 1,000 UNIT (25 MCG) TABLET PO SCH (10:15)
[2021-01-01] MEDS: CALCIUM 500MG/VIT-D 200 UNITS COMBO TABLET (FP) PO SCH (10:15)
[2021-01-01] MEDS: POTASSIUM CHLORIDE TABS 20 MEQ TABLET.ER (FP) PO SCH (10:15)
[2021-01-01] MEDS: CEFTRIAXONE 1 GM in DEXTROSE 5%-WATER - 50 ML IVPB SCH (10:16)
[2021-01-01] MEDS: BISACODYL 5 MG TABLET.DR (FP) PO SCH (10:19)
[2021-01-01] MEDS ORDERED: INSULIN (NOVOLOG) ASPART 100 UNITS/ML 10ML VIAL ONE (21:05)
[2021-01-01] MEDS: ATORVASTATIN CA 10 MG TABLET (FP) PO SCH (21:27)
[2021-01-02] MEDS: FUROSEMIDE 20 MG TABLET (FP) PO SCH (05:56)
[2021-01-02] MEDS: ACETAMINOPHEN 500 MG TABLET (FP) PO SCH (05:56)
[2021-01-02] MEDS: LEVOTHYROXINE NA 25 MCG TABLET (FP) PO SCH (06:02)
[2021-01-02] MEDS: INSULIN SLIDING SCALE (NOVOLOG) 1 VIAL SQ SCH (06:02)
[2021-01-02 06:24] VITALS: BP 156/89; PULSE 73; TEMP 97.9
[2021-01-02] MEDS ORDERED: PT OWN MED DRAWER 7, Y5N ONE (09:06)
[2021-01-02] MEDS: MULTIVITAMINS (DAILY MVI) TABLET (FP) PO SCH (09:08)
[2021-01-02] MEDS: DUTASTERIDE 0.5 MG CAP (FP) PO SCH (09:08)
[2021-01-02] MEDS: CHOLECALCIFEROL (VIT D3) 1,000 UNIT (25 MCG) TABLET PO SCH (09:08)
[2021-01-02] MEDS: LISINOPRIL 5 MG TABLET PO SCH (09:08)
[2021-01-02] MEDS: CALCIUM 500MG/VIT-D 200 UNITS COMBO TABLET (FP) PO SCH (09:09)
[2021-01-02] MEDS: ENOXAPARIN NA (PORCINE) 40 MG/0.4 ML DISP.SYRIN SQ SCH (09:09)
[2021-01-02] MEDS: BISACODYL 5 MG TABLET.DR (FP) PO SCH (09:09)
[2021-01-02] MEDS: POTASSIUM CHLORIDE TABS 20 MEQ TABLET.ER (FP) PO SCH (09:09)
[2021-01-02] MEDS: METOPROLOL TARTRATE 25 MG TABLET (FP) PO SCH (09:09)
== END 2021-01-02 10:50 | DRG 699 ==
LOC: JER 18:33 → JERBED 20:42 → J6S 12-28 03:24
PROVIDERS: ADMIT Internal Medicine; ATTEND Internal Medicine
DX: T83.011A Breakdown (mechanical) of indwelling urethral catheter, initial encounter (principal); N39.0 Urinary tract infection, site not specified; S37.30XA Unspecified injury of urethra, initial encounter; I13.0 Hypertensive heart and chronic kidney disease with heart failure and stage 1 through stage 4 chronic kidney disease, or unspecified chronic kidney disease; N18.2 Chronic kidney disease, stage 2 (mild); I50.9 Heart failure, unspecified; N39.9 Disorder of urinary system, unspecified; E11.22 Type 2 diabetes mellitus with diabetic chronic kidney disease; E03.9 Hypothyroidism, unspecified; N32.89 Other specified disorders of bladder; Y83.9 Surgical procedure, unspecified as the cause of abnormal reaction of the patient, or of later complication, without mention of misadventure at the time of the procedure; X58.XXXA Exposure to other specified factors, initial encounter; Y93.9 Activity, unspecified; Y92.89 Other specified places as the place of occurrence of the external cause; Y99.9 Unspecified external cause status; N40.0 Benign prostatic hyperplasia without lower urinary tract symptoms; E78.5 Hyperlipidemia, unspecified; D72.829 Elevated white blood cell count, unspecified
CPT/HCPCS: 36415; 71045-TC-FY; 80048; 80053; 81003; 82962; 84443; 85025; 85610; 87086; 87186; 99285-25; C9803; U0003; U0005